=== PATIENT | male | born 1955 | race African-American/Black ===

== ENCOUNTER → 2018-12-05 | Outpatient (CLI) | payer BC ==
[2018-07-10 15:00] VITALS: BP 151/70
[~2018-12-05] MED LIST: AMLO5TAB10 PO; ATOR10TA PO; ATOR10TA60 PO; CHOL10002 PO; DOXY100C2 PO; Hydrocodone/Acetaminophen PO; INSU100C4 SQ; INSU100I30 SQ; INSU100V13 SQ; LISI2.5T PO; METF850T8 PO; METO-239 PO; METO25TA4 PO; Metoprolol Tartrate PO; OMEG500C3 PO; TRIA1TAB3 PO; TRIA50CA PO
--- NOTE | 2018-12-05 16:05 | KCIC ---
3 view study of the first digit the right foot Clinical indications: Right first digit ulcer. Status post surgery 2 months. FINDINGS: No acute fracture or dislocation or lytic process is seen. Soft tissue defect of the plantar aspect of the distal portion of the first digit is seen. No soft tissue air is seen otherwise. IMPRESSION: No osteomyelitis. 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 Electronically signed by: Castillo Smart MD (12/05/2018 4:03 PM) [place] [id number]
== END | disposition home or self-care (01) ==
LOC: KCIC 11:26
PROVIDERS: ATTEND Podiatrist
DX: M19.071 Primary osteoarthritis, right ankle and foot (principal); E11.621 Type 2 diabetes mellitus with foot ulcer; L97.519 Non-pressure chronic ulcer of other part of right foot with unspecified severity
CPT/HCPCS: 73660